=== PATIENT | female | born 1945 | race Asian ===

== ENCOUNTER 2022-01-11 11:44 | Outpatient (CLI) | payer MEDICARE, OTHER ==
--- NOTE | 2022-01-11 14:07 | XRAY Report ---
PROCEDURE: Lumbar Spine Complete INDICATIONS: LOW BACK PX AFTER A FALL TECHNIQUE: 5 views of the lumbar spine were acquired. COMPARISON: None. FINDINGS: Bones: 5 [id number] vertebrae are present. There is normal bony alignment. No vertebral body compression fractures. No suspicious bony lesions. There is diffuse intervertebral disc space narro wing, endplate sclerosis and small anterior osteophyte formation. Soft tissues: Overlying bowel gas pattern is normal. No suspicious soft tissue calcifications. IMPRESSION: 1. Mild degenerative change. 2. No pars interarticularis defects. 3. No compression deformities. Reviewed by: Justina Stallworth MD on 01/11/2022 2:06 PM PDT Approved by: Justina Stallworth MD on 01/11/2022 2:06 PM PDT Station ID: [id number]
--- NOTE | 2022-01-11 17:40 | XRAY Report ---
PROCEDURE: Ribs Bilat w/Chest 4 View INDICATIONS: BILATERAL RIB PX AND THORACIC BACK PX TECHNIQUE: 4 views of the bilateral ribs were acquired, along with a single view chest. COMPARISON: none FINDINGS: Surgical changes and devices: None. Bones and chest wall: No fractures or dislocations. No suspicious bony lesions. Overlying soft tis sues appear unremarkable. Lungs and pleura: No pleural effusions or pneumothorax. Lungs appear clear. Mediastinum: Mediastinal contours appear normal. Heart size is normal. IMPRESSION: No visualized acute fracture or dislocation. However, occult injury cannot be excluded. Recommend daniel rt interval imaging follow-up in 7-10 days as clinically indicated for additional evaluation. Reviewed by: Ifeoma Padron MD on 01/11/2022 5:38 PM PDT Approved by: Ifeoma Padron MD on 01/11/2022 5:38 PM PDT Station ID: [id number]
== END 2022-01-11 11:45 | disposition home or self-care (01) ==
LOC: DI.N 11:44
PROVIDERS: ATTEND Nurse Practitioner
DX: M47.816 Spondylosis without myelopathy or radiculopathy, lumbar region (principal); R07.81 Pleurodynia